=== PATIENT | male | born 1990 | race Hispanic/Latino ===

== ENCOUNTER 2024-05-20 12:17 | Inpatient (IN) | payer OTHER ==
[~2024-05-20] VITALS: Ht 195.6 cm; Wt 131.5 kg
[2024-05-20 14:00] VITALS: TEMP 98.6
[2024-05-20] MEDS ORDERED: SODIUM CHLORIDE 0.9% 1000ML 1,000 ML IV SCH (15:15)
[2024-05-20 15:17] LABS: BASOPHILS % 0.2 % (0.0-1.0); EOSINOPHILS % 0.2 % (0.0-6.0); HEMATOCRIT 48.7 % (38.2-49.6); HEMOGLOBIN 17.1 g/dL (14.0-18.0); LYMPHOCYTES # (AUTO) 2.5 (1.0-3.2); LYMPHOCYTES % 19.5 % (18.0-39.1); MEAN CORPUSCULAR HEMOGLOBIN 30.5 pg (28-32); MEAN CORPUSCULAR HGB CONC 35.1 g/dL (31-35); MEAN CORPUSCULAR VOLUME 86.8 fL (81-99); MONOCYTES # (AUTO) 1.1 (0.2-0.8); MONOCYTES % 8.6 % (4.4-11.3); NEUTROPHILS # (AUTO) 8.9 (2.1-6.9); NEUTROPHILS % 70.9 % (38.7-80.0); PLATELET COUNT 158 x10e3/uL (140-360); RED BLOOD COUNT 5.61 x10e6/uL (4.3-5.7); RED CELL DISTRIBUTION WIDTH 13.5 % (11.7-14.4); WHITE BLOOD COUNT 12.62 x10e3/uL (4.8-10.8)
[2024-05-20] MEDS: SODIUM CHLORIDE 0.9% 1000ML 1,000 ML IV SCH (15:23)
[2024-05-20 15:30] LABS: ALBUMIN 3.8 g/dL (3.5-5.0); ALBUMIN/GLOBULIN RATIO 1.1 (0.8-2.0); BILIRUBIN,TOTAL 2.3 mg/dL (0.2-1.2); CALCIUM 9.6 mg/dL (8.4-10.2); CREATININE, SERUM 0.81 mg/dL (0.72-1.25); TOTAL PROTEIN 7.3 g/dL (6.5-8.1)
[2024-05-20 16:14] VITALS: PULSE 74; RESP 20; O2SAT 97
[2024-05-20] MEDS: Morphine 4mg INJECTION 4 MG/ML INJ IV PRN (16:16)
[2024-05-20] MEDS: ONDANSETRON HCL INJ 2MG/ML 2ML 2 MG/ML VIAL IV PRN (16:17)
[2024-05-20 18:00] VITALS: PULSE 77; RESP 16
[2024-05-20] MEDS ORDERED: DEXTROSE 50% SYRINGE 50 ML IV PRN (19:00)
[2024-05-20 20:00] VITALS: BP 119/71; PULSE 86; RESP 17; TEMP 98.8; O2SAT 100
[2024-05-20 20:26] VITALS: BP 120/69; PULSE 79; RESP 18; O2SAT 98
[2024-05-20 20:30] VITALS: PULSE 86; RESP 18; O2SAT 100
[2024-05-20] MEDS ORDERED: BISACODYL 10 MG SUPP PR PRN (21:45)
[2024-05-20] MEDS ORDERED: POLYETHYLENE GLYCOL 3350 17 GM PACK PO PRN (21:45)
[2024-05-20] MEDS ORDERED: ACETAMINOPHEN 325 MG TAB PO PRN (21:45)
[2024-05-20] MEDS: INSULIN LISPRO 100 UNIT/1 ML 3ML VIAL SQ SCH (21:48)
[2024-05-21] VITALS (12 sets, daily range): BP systolic 109–128; BP diastolic 61–83; PULSE 70–86; RESP 16–19; TEMP 97.5–99; O2SAT 96–100
[2024-05-21] MEDS ORDERED: SODIUM CHLORIDE 0.9% 250ML 0 ML ONE (03:38)
[2024-05-21] MEDS ORDERED: METFORMIN HCL500 MG PO (05:18)
[2024-05-21 06:04] LABS: BASOPHILS % 0.3 % (0.0-1.0); EOSINOPHILS # (AUTO) 0.1 (0.0-0.4); EOSINOPHILS % 1.3 % (0.0-6.0); HEMOGLOBIN 15.2 g/dL (14.0-18.0); LYMPHOCYTES # (AUTO) 2.5 (1.0-3.2); LYMPHOCYTES % 32.4 % (18.0-39.1); MEAN CORPUSCULAR HEMOGLOBIN 30.7 pg (28-32); MEAN CORPUSCULAR HGB CONC 34.5 g/dL (31-35); MEAN CORPUSCULAR VOLUME 88.9 fL (81-99); MONOCYTES # (AUTO) 0.7 (0.2-0.8); MONOCYTES % 8.9 % (4.4-11.3); NEUTROPHILS # (AUTO) 4.3 (2.1-6.9); NEUTROPHILS % 56.3 % (38.7-80.0); PLATELET COUNT 143 x10e3/uL (140-360); RED BLOOD COUNT 4.95 x10e6/uL (4.3-5.7); RED CELL DISTRIBUTION WIDTH 13.4 % (11.7-14.4); WHITE BLOOD COUNT 7.66 x10e3/uL (4.8-10.8)
[2024-05-21 06:54] LABS: ALBUMIN 3.1 g/dL (3.5-5.0); ANION GAP 11.5 mmol/L (8-16); BILIRUBIN,TOTAL 1.3 mg/dL (0.2-1.2); CALCIUM 8.7 mg/dL (8.4-10.2); CHOL/HDL RATIO 4.8 (3.9-4.7); CREATININE, SERUM 0.78 mg/dL (0.72-1.25); POTASSIUM 4.5 mmol/L (3.5-5.1); TOTAL PROTEIN 6.2 g/dL (6.5-8.1)
[2024-05-21] MEDS: LOSARTAN POTASSIUM 25 MG TAB PO SCH (08:56)
[2024-05-21] MEDS: METFORMIN HCL 500 MG TAB PO SCH (08:57)
[2024-05-21] MEDS: ATORVASTATIN 40 MG TAB PO SCH (21:40)
[2024-05-22 03:26] VITALS: BP 131/75; PULSE 100; RESP 18; TEMP 99.5; O2SAT 83
[2024-05-22 04:19] LABS: BASOPHILS % 0.6 % (0.0-1.0); EOSINOPHILS # (AUTO) 0.1 (0.0-0.4); EOSINOPHILS % 1.3 % (0.0-6.0); HEMATOCRIT 47.5 % (38.2-49.6); HEMOGLOBIN 16.7 g/dL (14.0-18.0); LYMPHOCYTES # (AUTO) 2.4 (1.0-3.2); LYMPHOCYTES % 35.6 % (18.0-39.1); MEAN CORPUSCULAR HGB CONC 35.2 g/dL (31-35); MEAN CORPUSCULAR VOLUME 88.1 fL (81-99); MONOCYTES # (AUTO) 0.5 (0.2-0.8); MONOCYTES % 6.7 % (4.4-11.3); NEUTROPHILS # (AUTO) 3.7 (2.1-6.9); NEUTROPHILS % 54.9 % (38.7-80.0); PLATELET COUNT 151 x10e3/uL (140-360); RED BLOOD COUNT 5.39 x10e6/uL (4.3-5.7); RED CELL DISTRIBUTION WIDTH 13.5 % (11.7-14.4); WHITE BLOOD COUNT 6.82 x10e3/uL (4.8-10.8)
[2024-05-22 04:39] LABS: ANION GAP 14.8 mmol/L (8-16); CALCIUM 9.3 mg/dL (8.4-10.2); POTASSIUM 3.8 mmol/L (3.5-5.1)
[2024-05-22 04:56] LABS: CREATININE, SERUM 0.81 mg/dL (0.72-1.25)
[2024-05-22 08:00] VITALS: BP 131/75; PULSE 100; RESP 18; TEMP 99.5; O2SAT 83
[2024-05-22 08:03] VITALS: BP 118/69; PULSE 85; RESP 16; TEMP 98.1; O2SAT 99
[2024-05-22 12:27] VITALS: BP 124/74; PULSE 83; RESP 16; TEMP 98.5; O2SAT 100
[2024-05-22] MEDS: GLIMEPIRIDE 2 MG TAB PO SCH (13:07)
[2024-05-22 17:12] VITALS: BP 126/70; PULSE 85; RESP 14; TEMP 98.4; O2SAT 99
[2024-05-22 19:28] VITALS: BP 140/89; PULSE 74; RESP 18; TEMP 98.4; O2SAT 100
[2024-05-23] VITALS: BP 128/71; PULSE 84; RESP 20; TEMP 99.4; O2SAT 100
[2024-05-23 04:00] VITALS: BP 116/66; PULSE 88; RESP 18; TEMP 97.7; O2SAT 98
[2024-05-23] MEDS ORDERED: SODIUM CHLORIDE 0.9% 250ML 250 ML ONE (04:16)
[2024-05-23 06:19] LABS: BASOPHILS % 0.6 % (0.0-1.0); EOSINOPHILS # (AUTO) 0.1 (0.0-0.4); HEMATOCRIT 44.6 % (38.2-49.6); HEMOGLOBIN 15.6 g/dL (14.0-18.0); LYMPHOCYTES # (AUTO) 2.5 (1.0-3.2); LYMPHOCYTES % 35.4 % (18.0-39.1); MEAN CORPUSCULAR HEMOGLOBIN 30.8 pg (28-32); MEAN CORPUSCULAR VOLUME 88.1 fL (81-99); MONOCYTES # (AUTO) 0.6 (0.2-0.8); MONOCYTES % 8.3 % (4.4-11.3); NEUTROPHILS # (AUTO) 3.8 (2.1-6.9); NEUTROPHILS % 53.3 % (38.7-80.0); PLATELET COUNT 159 x10e3/uL (140-360); RED BLOOD COUNT 5.06 x10e6/uL (4.3-5.7); RED CELL DISTRIBUTION WIDTH 13.3 % (11.7-14.4); WHITE BLOOD COUNT 7.15 x10e3/uL (4.8-10.8)
[2024-05-23 06:32] LABS: ALBUMIN 3.3 g/dL (3.5-5.0); ALBUMIN/GLOBULIN RATIO 0.9 (0.8-2.0); BILIRUBIN,TOTAL 0.8 mg/dL (0.2-1.2); MAGNESIUM 1.7 MG/DL (1.3-2.1); TOTAL PROTEIN 6.8 g/dL (6.5-8.1)
[2024-05-23 07:03] LABS: CREATININE, SERUM 0.77 mg/dL (0.72-1.25)
[2024-05-23 08:00] VITALS: BP 128/75; PULSE 68; RESP 17; TEMP 97.9; O2SAT 98
[2024-05-23 08:15] VITALS: BP 128/75; PULSE 68; RESP 17; TEMP 97.9; O2SAT 98
[2024-05-23] MEDS ORDERED: COZAAR25 MG PO (11:33)
[2024-05-23] MEDS ORDERED: DOXYCYCLINE HY100 MG PO (11:34)
[2024-05-23] MEDS ORDERED: CIPRO500 MG PO (11:34)
[2024-05-23 12:01] VITALS: BP 139/88; PULSE 81; RESP 18; TEMP 97.5; O2SAT 97
[2024-05-23] MEDS ORDERED: ATORVASTATIN CA40 MG PO (14:46)
[2024-05-23] MEDS ORDERED: GLIMEPIRIDE2 MG PO (14:46)
== END 2024-05-23 15:45 | disposition home or self-care (01) | DRG 638 ==
LOC: ER 14:49 → ERHOLD 15:58 → MED/SURG3 18:27
PROVIDERS: ADMIT Internal Medicine; ATTEND Internal Medicine
DX: E11.621 Type 2 diabetes mellitus with foot ulcer (principal); L03.116 Cellulitis of left lower limb; L97.528 Non-pressure chronic ulcer of other part of left foot with other specified severity; E11.42 Type 2 diabetes mellitus with diabetic polyneuropathy; I10 Essential (primary) hypertension; K76.0 Fatty (change of) liver, not elsewhere classified; E66.811 Obesity, class 1; Z68.34 Body mass index [BMI] 34.0-34.9, adult; T38.3X6A Underdosing of insulin and oral hypoglycemic [antidiabetic] drugs, initial encounter; Z91.128 Patient's intentional underdosing of medication regimen for other reason; Z79.84 Long term (current) use of oral hypoglycemic drugs
CPT/HCPCS: 36415; 80048; 80053; 80061; 80202; 82948; 83036; 83605; 83735; 84550; 85025; 86140; 87040; 93925; 94799; 96372; 99284; J2270; J2405; J2543; J7030; J7050

== ENCOUNTER 2025-02-27 17:47 | Inpatient (IN) | payer OTHER ==
[~2025-02-27] VITALS: Ht 195.6 cm; Wt 125.3 kg
[~2025-02-27 17:47] MED LIST: ATORVASTATIN CA40 MG PO; CIPRO500 MG PO; COZAAR25 MG PO; DOXYCYCLINE HY100 MG PO; GLIMEPIRIDE2 MG PO; METFORMIN HCL500 MG PO
[2025-02-27 18:45] VITALS: RESP 18
[2025-02-27] MEDS ORDERED: ACETAMINOPHEN 325 MG TAB PO PRN (19:15)
[2025-02-27] MEDS: SODIUM CHLORIDE 0.9% 1000ML 1,000 ML IV STA (19:28)
[2025-02-27 19:30] LABS: BASOPHILS % 0.1 % (0.0-1.0); EOSINOPHILS % 0.1 % (0.0-6.0); LYMPHOCYTES % 17.8 % (18.0-39.1); MONOCYTES % 10.1 % (4.4-11.3); NEUTROPHILS % 71.3 % (38.7-80.0); RED CELL DISTRIBUTION WIDTH 13.0 % (11.7-14.4)
[2025-02-27] MEDS ORDERED: ONDANSETRON HCL INJ 2MG/ML 2ML 2 MG/ML VIAL IV PRN (19:30)
[2025-02-27] MEDS: ACETAMINOPHEN 325 MG TAB PO ONE (19:47)
[2025-02-27 19:52] LABS: EST GLOMERULAR FILTRATION RATE 119.0 ML/MIN (>=60)
[2025-02-27] MEDS: CIPROFLOXACIN 400 MG/D5W 200ML 200 ML IV SCH (21:37)
[2025-02-27] MEDS: SODIUM CHLORIDE 0.9% 1000ML 1,000 ML IV SCH (21:37)
[2025-02-27 21:39] VITALS: PULSE 86; TEMP 99.2
[2025-02-27 22:00] VITALS: BP 123/79; PULSE 83; RESP 20; TEMP 97.6; O2SAT 99
[2025-02-27 23:00] VITALS: BP 123/79; PULSE 83; RESP 20; TEMP 97.6; O2SAT 99
[2025-02-27 23:51] LABS: AMPHETAMINES SCREEN,URINE POSITIVE (NEGATIVE); CANNABINOIDS SCREEN,URINE NEGATIVE (NEGATIVE); COCAINE SCREEN,URINE NEGATIVE (NEGATIVE); LEUKOCYTE ESTERASE ,URINE TRACE (NEGATIVE); METHADONE SCREEN, URINE NEGATIVE (NEGATIVE); OPIATES SCREEN,URINE NEGATIVE (NEGATIVE); PROTEIN,URINE DIPSTICK NEGATIVE (NEGATIVE); URINE UROBILINOGEN 0.2 mg/dL (0.2 - 1)
[2025-02-28] VITALS (8 sets, daily range): BP systolic 120–144; BP diastolic 70–81; PULSE 66–83; RESP 18–20; TEMP 97.3–98.8; O2SAT 99–100
[2025-02-28] MEDS ORDERED: POLYETHYLENE GLYCOL 3350 17 GM PACK PO PRN
[2025-02-28] MEDS ORDERED: DEXTROSE 50% SYRINGE 50 ML IV PRN
[2025-02-28] MEDS ORDERED: BISACODYL 10 MG SUPP PR PRN
[2025-02-28 00:03] LABS: EPITHELIAL CELLS,URINE MODERATE /LPF; WBC,URINE (MAN) >50 /HPF (0-5)
[2025-02-28 00:04] LABS: YEAST,URINE MODERATE
[2025-02-28 05:43] LABS: BASOPHILS % 0.3 % (0.0-1.0); EOSINOPHILS % 0.8 % (0.0-6.0); LYMPHOCYTES % 32.9 % (18.0-39.1); MONOCYTES % 12.4 % (4.4-11.3); NEUTROPHILS % 52.8 % (38.7-80.0); RED CELL DISTRIBUTION WIDTH 13.0 % (11.7-14.4)
[2025-02-28 06:09] LABS: EST GLOMERULAR FILTRATION RATE 122.0 ML/MIN (>=60)
[2025-02-28 06:30] LABS: CHOL/HDL RATIO 4.5 (3.9-4.7); LDL CHOLESTEROL 44.0 MG/DL (60-130)
[2025-02-28] MEDS: INSULIN LISPRO 100 UNIT/1 ML 3ML VIAL SQ SCH (07:30)
[2025-02-28] MEDS: CLINDAMYCIN 600MG / 50ML 50 ML IV SCH (12:58)
[2025-03-01] VITALS (8 sets, daily range): BP systolic 121–140; BP diastolic 65–77; PULSE 63–82; RESP 18–20; TEMP 96.5–98.8; O2SAT 97–100
[2025-03-01 05:20] LABS: BASOPHILS % 0.3 % (0.0-1.0); EOSINOPHILS % 1.4 % (0.0-6.0); LYMPHOCYTES % 36.0 % (18.0-39.1); MONOCYTES % 10.3 % (4.4-11.3); NEUTROPHILS % 51.0 % (38.7-80.0); RED CELL DISTRIBUTION WIDTH 13.2 % (11.7-14.4)
[2025-03-01 06:21] LABS: EST GLOMERULAR FILTRATION RATE 123.0 ML/MIN (>=60)
[2025-03-01] MEDS ORDERED: ONDANSETRON HCL 4 MG ORAL DISINTEGRATING TAB PO PRN (11:00)
[2025-03-01] MEDS ORDERED: MIDAZOLAM HCL 2 MG/2 ML VIAL ONE (11:57)
[2025-03-01] MEDS ORDERED: FENTANYL CITRATE/PF 100MCG/2 ML INJ ONE (11:57)
[2025-03-01] MEDS ORDERED: PROPOFOL IV EMULSION 10 MG/ML 20 ML VIAL ONE (11:58)
[2025-03-01] MEDS ORDERED: LIDOCAINE HCL 2% LOCAL INJ 5 ML SDV VIAL INJ ONE (11:58)
[2025-03-01] MEDS ORDERED: HYDROMORPHONE 2MG/ML ONE (12:49)
[2025-03-01] MEDS ORDERED: ONDANSETRON HCL INJ 2MG/ML 2ML 2 MG/ML VIAL ONE (12:57)
[2025-03-01] MEDS: PIPERACILLIN/TAZOBACTAM 3.375 GM VIAL ONE (13:03)
[2025-03-01] MEDS: SODIUM CHLORIDE 0.9% 100 ML ONE (13:03)
[2025-03-01] MEDS: Morphine 4mg INJECTION 4 MG/ML INJ IV PRN (21:24)
[2025-03-02] VITALS (7 sets, daily range): BP systolic 112–136; BP diastolic 62–75; PULSE 76–81; RESP 18–20; TEMP 99–99.1; O2SAT 96–97
[2025-03-02 05:23] LABS: BASOPHILS % 0.4 % (0.0-1.0); EOSINOPHILS % 0.3 % (0.0-6.0); LYMPHOCYTES % 24.5 % (18.0-39.1); MONOCYTES % 9.0 % (4.4-11.3); NEUTROPHILS % 65.1 % (38.7-80.0); RED CELL DISTRIBUTION WIDTH 13.2 % (11.7-14.4)
[2025-03-02 05:49] LABS: EST GLOMERULAR FILTRATION RATE 102.0 ML/MIN (>=60)
[2025-03-02] MEDS: FLUCONAZOLE 100 MG TAB PO SCH (09:17)
[2025-03-02] MEDS: Vancomycin IV 1 GM in SODIUM CHLORIDE 0.9% 250ML 250 ML IV SCH (18:28)
[2025-03-02] MEDS: NPH, HUMAN INSULIN ISOPHANE 100 UNIT/1 ML 3ML VIAL SQ SCH (22:07)
[2025-03-03] VITALS: BP 149/90; PULSE 70; RESP 18; TEMP 98.8; O2SAT 100
[2025-03-03 04:00] VITALS: BP 131/73; PULSE 59; RESP 18; TEMP 98.5; O2SAT 100
[2025-03-03 05:28] LABS: BASOPHILS % 0.2 % (0.0-1.0); EOSINOPHILS % 0.9 % (0.0-6.0); LYMPHOCYTES % 35.8 % (18.0-39.1); MONOCYTES % 9.5 % (4.4-11.3); NEUTROPHILS % 52.9 % (38.7-80.0); RED CELL DISTRIBUTION WIDTH 13.2 % (11.7-14.4)
[2025-03-03 06:06] LABS: EST GLOMERULAR FILTRATION RATE 117.0 ML/MIN (>=60)
[2025-03-03 08:00] VITALS: BP 116/64; PULSE 62; RESP 18; TEMP 98.6; O2SAT 99
[2025-03-03 09:20] VITALS: BP 116/64; PULSE 62; RESP 18; TEMP 98.6; O2SAT 99
[2025-03-03] MEDS ORDERED: DIFLUCAN100 MG PO (11:58)
[2025-03-03] MEDS ORDERED: CIPROFLOXACIN500 MG PO (11:58)
[2025-03-03] MEDS ORDERED: INSULIN SYRING SC (11:58)
[2025-03-03] MEDS ORDERED: KETOROLAC TROME10 MG PO (11:58)
[2025-03-03] MEDS ORDERED: HUMULIN N100 UNITS/ SQ (11:58)
[2025-03-03 12:19] VITALS: BP 120/62; PULSE 56; RESP 19; TEMP 98.4; O2SAT 100
== END 2025-03-03 15:17 | disposition home or self-care (01) | DRG 853 ==
LOC: ER 17:50 → ERHOLD 19:27 → MED/SURG 22:13
PROVIDERS: ADMIT Internal Medicine; ATTEND Internal Medicine
PROC: 0Y6P0Z0 Detachment at Right 1st Toe, Complete, Open Approach (ICD-10-PCS; principal; 2025-02-28)
PROC: 0QDQ0ZZ Extraction of Right Toe Phalanx, Open Approach (ICD-10-PCS; 2025-02-28)
DX: A41.9 Sepsis, unspecified organism (principal); A48.0 Gas gangrene; M86.171 Other acute osteomyelitis, right ankle and foot; N39.0 Urinary tract infection, site not specified; B48.8 Other specified mycoses; L97.525 Non-pressure chronic ulcer of other part of left foot with muscle involvement without evidence of necrosis; L97.514 Non-pressure chronic ulcer of other part of right foot with necrosis of bone; E11.621 Type 2 diabetes mellitus with foot ulcer; E11.69 Type 2 diabetes mellitus with other specified complication; E11.40 Type 2 diabetes mellitus with diabetic neuropathy, unspecified; K76.0 Fatty (change of) liver, not elsewhere classified; F15.10 Other stimulant abuse, uncomplicated; T38.3X6A Underdosing of insulin and oral hypoglycemic [antidiabetic] drugs, initial encounter; I10 Essential (primary) hypertension; E78.5 Hyperlipidemia, unspecified; E11.65 Type 2 diabetes mellitus with hyperglycemia; B96.89 Other specified bacterial agents as the cause of diseases classified elsewhere; E66.9 Obesity, unspecified; Z79.84 Long term (current) use of oral hypoglycemic drugs; Y92.9 Unspecified place or not applicable; Z68.30 Body mass index [BMI] 30.0-30.9, adult
CPT/HCPCS: 36415; 80053; 80061; 80307; 81001; 82948; 83036; 83605; 83735; 85025; 87040; 87071; 87075; 87086; 87205; 88304; 88305; 88311; 93925; 96372; 99252; 99284; J1171; J2003; J2250; J2270; J2405; J2543; J3373; J7030; J7050